=== PATIENT | female | born 1975 | race Caucasian/White ===

== ENCOUNTER 2021-09-11 03:31 | Emergency (ER) | payer SELFPAY ==
--- NOTE | 2021-09-11 04:50 | ER ---
Nurse's Notes [facility] Name: Harriet Grullon Age: 46 yrs Sex: Female : 1975 Arrival Date: 09/11/2021 Time: 03:34 Bed 4 Private MD: Diagnosis: Presentation: 09/11 03:47 Chief complaint: Patient states: "I have had abdominal pain and back pain for one week tw5 with vaginal bleeding.". Coronavirus screen: At this time, the client does not indicate any symptoms associated with coronavirus-19. Ebola Screen: No symptoms or risks identified at this time. Initial Sepsis Screen: Does the patient meet any 2 criteria? HR > 90 bpm. Yes Does the patient have a suspected source of infection? Yes: Acute abdominal pain. Risk Assessment: Do you want to hurt yourself or someone else? Patient reports no desire to harm self or others. Onset of symptoms was September 05, 2021. Transition of care: patient was not received from another setting of care. 03:47 Method Of Arrival: Wheelchair tw5 03:47 Acuity: KATLYN 3 tw5 Historical: - Allergies: 03:51 No Known Allergies; tw5 - Home Meds: 03:51 None [Active]; tw5 - PMHx: 03:51 None; tw5 - PSHx: 03:51 None; tw5 - Social history:: Smoking status: Patient reports the use of cigarette tobacco products, smokes one-half pack cigarettes per day. Assessment: 04:20 Reassessment: Notified of patient telling community chest officer she is having her brother take lp1 her to [place] for medical treatment since that is where she lives. Vital Signs: 03:47 BP 128 / 65; Pulse 103; Resp 18; Temp 99.1(O); Pulse Ox 98% on R/A; Weight 68.04 kg tw5 (R); Height 5 ft. 9 in. (175.26 cm) (R); Pain 10/10; 03:47 Body Mass Index 22.15 (68.04 kg, 175.26 cm) tw5 ED Course: 03:34 Patient arrived in ED. ja2 03:47 Breezy Santamaria MD is Attending Physician. [facility] 03:51 Triage completed. tw5 03:51 Arm band placed on right wrist. tw5 Administered Medications: No medications were administered Outcome: 04:49 Eloped from patient exam room, before seeing physician Time discovered patient gone: lp1 September 11, 2021 at 04:30 04:49 Patient left the ED. lp1 Signatures: Breezy Santamaria MD MD cha Pena, Laura, RN RN lp1 Latesha Uribe Tiffany tw5
--- NOTE | 2021-09-11 04:50 | EDPHYS ---
Physician Documentation [facility] Name: Harriet Grullon Age: 46 yrs Sex: Female : 1975 Arrival Date: 09/11/2021 Time: 03:34 Bed 4 Private MD: ED Physician Breezy Santamaria Historical: - Allergies: 09/11 03:51 No Known Allergies; tw5 - Home Meds: 03:51 None [Active]; tw5 - PMHx: 03:51 None; tw5 - PSHx: 03:51 None; tw5 - Social history:: Smoking status: Patient reports the use of cigarette tobacco products, smokes one-half pack cigarettes per day. Vital Signs: 03:47 BP 128 / 65; Pulse 103; Resp 18; Temp 99.1(O); Pulse Ox 98% on R/A; Weight 68.04 kg tw5 (R); Height 5 ft. 9 in. (175.26 cm) (R); Pain 10/10; 03:47 Body Mass Index 22.15 (68.04 kg, 175.26 cm) tw5 MDM: 03:47 Patient medically screened. [facility] 04:24 ED course: I never saw this patient, patient literally got to the room and said I want [facility] to go to [place], did not want to be evaluated here. Administered Medications: No medications were administered Disposition Summary: 09/11/21 04:49 Eloped Disposition: before being seen by provider lp1 Reason: unknown lp1 Signatures: Breezy Santamaria MD MD cha Pena, Laura RN RN lp1 Kayla Richard tw5
[2021-09-11 12:29] VITALS: BP 128/65; TEMP 99.1; O2SAT 98
== END 2021-09-11 04:49 | disposition left against medical advice (07) ==
LOC: ER 03:31
DX: Z53.21 Procedure and treatment not carried out due to patient leaving prior to being seen by health care provider (principal)
CPT/HCPCS: 99281

== ENCOUNTER 2023-09-14 12:41 | Emergency (ER) | payer SELFPAY ==
--- NOTE | 2023-09-14 13:11 | EDPHYS ---
Physician Documentation [facility] Name: Harriet Grullon Age: 48 yrs Sex: Female : 1975 Arrival Date: 09/14/2023 Time: 12:41 Bed IW10 Private MD: ED Physician Shadi Freeman Historical: - Allergies: 09/13 12:59 No Known Allergies; as6 - PMHx: 12:59 None; as6 - PSHx: 12:59 None; as6 MDM: 13:10 Medical screening is not applicable. ec2 Administered Medications: No medications were administered Disposition Summary: 09/14/23 13:10 Eloped Notes: Disposition: before being seen by provider ec2 Reason: unknown ec2 Diagnosis - Dog Bite ec2 Signatures: Williams Conn, RN RN as6 Shadi Freeman MD MD ec2
--- NOTE | 2023-09-14 13:11 | ER ---
Nurse's Notes [facility] Name: Harriet Grullon Age: 48 yrs Sex: Female : 1975 Arrival Date: 09/14/2023 Time: 12:41 Bed IW10 [facility] MD: Diagnosis: Dog Bite Presentation: 09/13 12:57 Chief complaint: EMS states: dog bite to left hand. happened today. pt was trying to as6 break up a dog fight. Coronavirus screen: At this time, the client does not indicate any symptoms associated with coronavirus-19. Ebola Screen: No symptoms or risks identified at this time. Risk Assessment: Do you want to hurt yourself or someone else? Patient reports no desire to harm self or others. Onset of symptoms was September 14, 2023. 12:57 Method Of Arrival: EMS: [facility] as6 12:57 Acuity: KATLYN 4 as6 Historical: - Allergies: 12:59 No Known Allergies; as6 - PMHx: 12:59 None; as6 - PSHx: 12:59 None; as6 Assessment: 13:31 General: pt states "I'm not going to wait. I'm going somewhere else" provider notified .as6 ED Course: 12:42 Patient arrived in ED. im 12:43 Shadi Freeman MD is Attending Physician. ec2 12:59 Triage completed. as6 Administered Medications: No medications were administered Outcome: 13:32 Eloped from waiting room, before seeing physician as6 13:32 Patient left the ED. as6 Signatures: Williams Conn RN RN as6 Simona Garcia im Shadi Freeman MD MD ec2
== END 2023-09-14 13:32 | disposition left against medical advice (07) ==
LOC: ER 12:41
DX: Z53.21 Procedure and treatment not carried out due to patient leaving prior to being seen by health care provider (principal)
CPT/HCPCS: 99282